=== PATIENT | female | born 1990 | race Caucasian/White ===

== ENCOUNTER 2016-05-30 00:48 | Inpatient (IN) | payer BC, OTHER ==
[2016-05-30] VITALS (7 sets, daily range): BP systolic 114–134; BP diastolic 56–88
[~2016-05-30] VITALS: Ht 180.3 cm; Wt 82.0 kg
[2016-05-30] MEDS ORDERED: VITA100037 PO (01:45)
[2016-05-30] MEDS ORDERED: PRENTAB9 PO (01:45)
[2016-05-30 02:22] LABS: MEAN CORPUSCULAR HEMOGLOBIN 33.3 pg (27.0-33.0); MEAN CORPUSCULAR HGB CONC 36.1 g/dl (32.0-36.5); MEAN CORPUSCULAR VOLUME 92.2 fl (80.0-96.0); RED CELL DISTRIBUTION WIDTH 13.2 % (11.5-14.5); WHITE BLOOD COUNT 12.9 K/mm3 (4.0-10.0)
[2016-05-30] MEDS ORDERED: LR 1,000 ML IV SCH (03:38)
[2016-05-30] MEDS ORDERED: OXYTOCIN DRIP 30 UNITS in APPROPRIATE DILUENT 1 EA IV SCH (03:45)
[2016-05-30] MEDS ORDERED: FENTANYL 2MCG/ML ROPIVACAINE 0.2% NACL 250 ML CADD As Ordered ONE (04:47)
[2016-05-30] MEDS ORDERED: OXYTOCIN INJ 10 UNITS/ML VIAL (J2590) As Ordered ONE (05:17)
[2016-05-30] MEDS ORDERED: LIDOCAINE 2% W/EPIN INJ 20ML **PRES FREE As Ordered ONE (05:28)
[2016-05-30] MEDS ORDERED: MIDAZOLAM INJ 2 MG/2 ML VIAL (J2250) As Ordered ONE (05:35)
[2016-05-30] MEDS ORDERED: fentaNYL 100 MCG/2 ML INJECTION (J3010) As Ordered ONE (05:35)
[2016-05-30] MEDS ORDERED: ceFAZolin 1GM INJ (J0690) As Ordered ONE (05:40)
[2016-05-30] MEDS ORDERED: ePHEDrine SULFATE 25 MG/5 ML(5MG/ML) SYRINGE As Ordered ONE (05:45)
[2016-05-30] MEDS ORDERED: MORPHINE PRES-FREE INJ 10 MG/10 ML VIAL (J2274) As Ordered ONE (06:00)
[2016-05-30 06:02] LABS: CORD GAS ABE V -4.7; CORD GAS HCO3 V 22.8 MEQ/L; CORD GAS PCO2 V 50.7 mmHg; CORD GAS PH V 7.271 UNITS; CORD GAS PO2 V 34.7 mmHg; CORD GAS TCO2 V 24.4 MEQ/L
[2016-05-30 06:11] LABS: CORD GAS ABE A -3.5; CORD GAS HCO3 A 23.1 MEQ/L; CORD GAS O2 SAT A 64.4 %; CORD GAS PCO2 A 47.8 mmHg; CORD GAS PH A 7.302 UNITS; CORD GAS PO2 A 27.4 mmHg; CORD GAS SBC A 20.9 MEQ/L; CORD GAS TCO2 A 24.6 MEQ/L
[2016-05-30] MEDS: LR 1,000 ML IV SCH ×3 (06:43→22:43)
[2016-05-30] MEDS: OXYTOCIN DRIP 30 UNITS in APPROPRIATE DILUENT 1 EA IV SCH ×3 (06:43→07:45)
[2016-05-30] MEDS ORDERED: ONDANSETRON 4MG/2ML VIAL (J2405) As Ordered ONE (06:43)
[2016-05-30] MEDS ORDERED: KETOROLAC 30 MG/ML VIAL (J1885) As Ordered ONE (06:43)
[2016-05-30] MEDS ORDERED: MOM 30ML SUSPENSION UDC PO PRN (06:45)
[2016-05-30] MEDS ORDERED: PERCOCET 5MG/325MG TAB PO PRN ×2 (06:45)
[2016-05-30] MEDS ORDERED: DOCUSATE SODIUM 100 MG CAP PO PRN (06:45)
[2016-05-30] MEDS ORDERED: RHOGAM 300 MCG (1500 IU) INJ (J2790) IM SCH (06:45)
[2016-05-30] MEDS ORDERED: MEASLES,MUMPS,RUBELLA VACCINE INJ (MMR-II) (90707) SC SCH (06:45)
[2016-05-30] MEDS ORDERED: ONDANSETRON 4MG/2ML VIAL (J2405) IV PRN ×2 (06:45→07:15)
[2016-05-30] MEDS: KETOROLAC 30 MG/ML VIAL (J1885) IV SCH ×3 (06:45→18:48)
[2016-05-30] MEDS ORDERED: IBUP800T23 PO (06:50)
[2016-05-30] MEDS ORDERED: PERCOCET PO (06:51)
--- NOTE | 2016-05-30 07:02 | HPE ---
DATE OF ADMISSION: 05/30/2016 REASON FOR ADMISSION: Vaginal bleeding, concerning for placenta abruption. HISTORY OF PRESENT ILLNESS: Mrs. Mcclellan is a 26-year-old 1 who presents at 40 weeks 5 days by her last menstrual period (LMP) confirmed by a first trimester ultrasound with an estimated date of confinement (EDC) of 05/25/2016 with complaints of vaginal bleeding. She reports that she woke up earlier this morning with bright red bleeding with a menstrual type flow. She denied any contractions at the time, abdominal pain. She reports movement. She presents as an unregistered patient. Her care has been with Dr. Vashti Gómez located in [place] who works out of [facility]. She reports a course which has been remarkable for a marginal growth with percentile growth approximately 14th percentile and also a low lying placenta, which had resolved. Otherwise, unremarkable course. PAST MEDICAL HISTORY: Infertility. PAST SURGICAL HISTORY: None. PAST OBSTETRICAL HISTORY: She is a 1. This is the result of Clomid with intrauterine insemination. MEDICATIONS: Include vitamins. ALLERGIES: She has no known drug allergies. SOCIAL HISTORY: Denies any alcohol, tobacco or drug use during her . PHYSICAL EXAMINATION: Her vital signs are stable. She is afebrile. Her general appearance is well appearing in no acute distress. Her heart rate tracing was a category 1 with contractions approximately every 4-5 minutes. Her lungs were clear to auscultation bilaterally. Cardiovascular heart regular rate and rhythm. Abdomen was soft, gravid and nontender. Estimated weight 2700 grams. On cervical exam she was 4 cm dilated, 90% effaced, -2 station with a bulging bag. Large clots were removed on sterile speculum exam showing a moderate amount of vaginal bleeding totaling approximately 100 mL over the course of an hour to an hour and a half. LABS: Her blood type is A positive. She was antibody screen negative. Rubella immune. RPR nonreactive. Hepatitis surface antigen was negative. HIV was negative. Chlamydia and gonorrhea screens were negative. She did have a sequential screen with increased risk of neural tube defect. She has been seen by the perinatologist at [place] and has had a normal level 2 ultrasound showing no neural tube defect. She had a normal 1 hour Glucola. Transabdominal ultrasound was performed showing the fetus in the cephalic presentation. Amniotic fluid index was 14 cm, anterior placenta, no clear signs of abruption. Active fetus. ASSESSMENT: 1. Mrs. Mcclellan is a 26-year-old 1 at 40 weeks 5 days estimated gestational age (EGA) with acute onset of vaginal bleeding concerning for placenta abruption. 2. Reassuring status. PLAN: 1. Admit to labor and delivery. 2. CBC, RPR, type and screen. 3. The patient has been thoroughly counseled in regards to her diagnosis concerning for placenta abruption. I discussed her diagnosis in detail with the family. I have also discussed medications as well as procedures performed in labor and delivery. She has also been verbally consented for emergency surgery, blood products, anesthesia and desires to proceed with admission. 4. My plan is to augment her labor with pitocin and as long as she remains stable will proceed with a vaginal delivery. 5. She is a good candidate for an early epidural. RAFAEL
--- NOTE | 2016-05-30 07:13 | RO ---
DATE OF PROCEDURE: 05/30/2016 PREOPERATIVE DIAGNOSIS: Non-reassuring heart rate tracing with placenta abruption. POSTOPERATIVE DIAGNOSIS: Non-reassuring heart rate tracing with placenta abruption. PROCEDURE PERFORMED: An emergent primary lower transverse section. SURGEON: Matilde Jean MD ASSISTANTS: Hai Major MD ANESTHESIA: General endotracheal anesthesia. Estimated blood loss was 600 mL. Intravenous fluids was 1200 mL of lactated Ringer's solution. PREOPERATIVE ANTIBIOTICS: 2 grams of Ancef. OPERATIVE FINDINGS: Upon entry into the uterus, there was large amounts of clots, which were removed and consistent with placenta abruption. Amniotic fluid was stained port wine, also consistent with placenta abruption. There was a liveborn female infant. scores 9 and 9. Weight 2742 grams or 6 pounds 0 ounces. Cord gases 7.3, 7.27 with base excess of -3.5 and -4.7, respectively. INDICATION FOR OPERATION: This patient is a 26-year-old, 1, who presents at 40 weeks 5 days estimated gestational age, last menstrual period confirmed by a first trimester ultrasound, as an unregistered patient of Dr. Gita Gómez, [place], [place], who works out of [employer]. She presented with complaints of vaginal bleeding that occurred late this evening, early this morning. She describes sort of a menstrual flow. She denies any leakage of fluid, contractions, abdominal pain, or trauma. Upon evaluation here at labor and delivery, she is found to have active bleeding, large amounts of clot and was concerns for placenta abruption. She was then admitted and her labor was augmented and request for an early epidural was initiated. Just prior to test dose of epidural, heart rate tracing started to show repetitive late decelerations with prolonged deceleration. At which time, patient was emergently taken to the operating room for a primary section for non-reassuring heart rate tracing. SPECIMENS: Cord blood, cord gases and placenta. DESCRIPTION OF PROCEDURE: After informed consent was obtained, patient was taken to the operating room emergently for non-reassuring heart tracing. She was then prepped and draped in a normal sterile fashion. A Peralta catheter had previously been placed and was set to gravity. Anesthesia was tested and deemed to be adequate, and decision was made to proceed with general anesthesia for her section. After general endotracheal anesthesia was obtained, a Pfannenstiel skin incision was then made and carried down to the underlying rectus fascia. The fascia was then scored, and this incision was extended bilaterally. Rectus muscles were then in the midline. Peritoneum was then entered. Incision was then made in the lower uterine segment. Amniotomy was then performed, productive of port wine stained colored amniotic fluid and removal of large blood clots. The head was then brought to level of incision, delivered atraumatically, followed by delivery of shoulders and corpus. Cord was clamped times two and was cut, and infant was taken over to the warmer with a good cry. Placenta was then delivered grossly intact. Uterus then exteriorized and cleared of all clots and debris. The uterine incision was then closed in two layers using #0 Vicryl, first layer in a running locking fashion, followed by a second layer for imbrication in a running nonlocking fashion. The abdomen was then suctioned. The uterus was returned to the patient's abdomen and was re-inspected and noted to be hemostatic. The anterior peritoneum was then reapproximated using #3-0 Vicryl. The rectus muscles were reapproximated with #3-0 Vicryl. The fascia was then closed using #0 Vicryl in a running nonlocking fashion. The subcutaneous tissue was then irrigated and suctioned. The Zach's fascia was reapproximated with #3-0 Vicryl. Several subdermal stitches were placed with #3-0 Vicryl, and the skin was closed with #4-0 Monocryl in a subcuticular fashion. The incision was then cleaned and dried. Mastisol was applied above and below the incision. Steri-Strips were applied over the incision, and the incision was then dressed. X-ray was then taken secondary to the emergent nature of the surgery. There was no count that was completed prior to starting the surgery. X-ray confirmed no retained sponges or operative instruments.
[2016-05-30] MEDS ORDERED: NALBUPHINE HCL 10 MG/ML AMP (J2300) IV PRN (07:15)
[2016-05-30] MEDS ORDERED: fentaNYL 100 MCG/2 ML INJECTION (J3010) IV PRN (07:15)
[2016-05-30] MEDS ORDERED: KETOROLAC 30 MG/ML VIAL (J1885) IV PRN (07:15)
--- NOTE | 2016-05-30 08:22 | REP ---
Clinical: Stat section without count. Technique: Portable supine view of the abdomen and pelvis. Findings: Bowel gas pattern is nonspecific. Epidural catheter is identified. There is no opaque foreign body overlying the right upper abdomen which requires correlation and may be external to the body. No other foreign bodies identified. Impression: Foreign body overlying the right upper abdomen may be external to the body. Signed by Judd Grimes MD 05/30/2016 08:14 A
[2016-05-30] MEDS: PRENATAL VITAMIN TAB PO SCH (09:00)
[2016-05-30] MEDS ORDERED: PROMETHAZINE INJ 25 MG/ML VIAL (J2550) IV PRN (12:20)
[2016-05-31] MEDS: OXYTOCIN DRIP 30 UNITS in APPROPRIATE DILUENT 1 EA IV SCH ×2 (00:17→00:48)
[2016-05-31] MEDS: KETOROLAC 30 MG/ML VIAL (J1885) IV SCH (01:01)
[2016-05-31 02:08] VITALS: BP 105/50
[2016-05-31 06:11] VITALS: BP 108/55
[2016-05-31] MEDS: LR 1,000 ML IV SCH (06:43)
[2016-05-31 07:10] LABS: MEAN CORPUSCULAR HEMOGLOBIN 33.1 pg (27.0-33.0); MEAN CORPUSCULAR HGB CONC 35.3 g/dl (32.0-36.5); MEAN CORPUSCULAR VOLUME 93.7 fl (80.0-96.0); RED CELL DISTRIBUTION WIDTH 13.3 % (11.5-14.5); WHITE BLOOD COUNT 13.5 K/mm3 (4.0-10.0)
[2016-05-31] MEDS: PRENATAL VITAMIN TAB PO SCH (09:00)
[2016-05-31] MEDS: IBUPROFEN 800 MG TAB PO SCH ×2 (09:39→20:30)
[2016-05-31 10:00] VITALS: BP 118/63
[2016-05-31 14:00] VITALS: BP 123/69
[2016-05-31 18:09] VITALS: BP 115/57
[2016-06-01] MEDS: IBUPROFEN 800 MG TAB PO SCH ×2 (00:45→08:15)
[2016-06-01 06:19] VITALS: BP 128/65
--- NOTE | 2016-06-01 08:01 | DSES ---
DATE OF ADMISSION: 05/30/2016 DATE OF DISCHARGE: HISTORY: 26-year-old G1 female 40-5/7 weeks gestation presents with onset of vaginal bleeding at home on the day of admission. The bleeding was like menstrual flow. She subsequently began to bleed heavier upon presentation to the hospital. Clinical suspicion was for placenta abruption. Her care was in [place] with Dr. Gita Gómez. Her course was significant for marginal growth and low lying placenta. HOSPITAL COURSE: On 05/30/2016, the patient was admitted with clinical suspicion of placental abruption at term. Labor was augmented. Shortly into the augmentation process, she developed heavier bleeding and repetitive late decelerations. Decision was made to perform section. On 05/30/2016, she underwent primary low transverse section without complication. There were multiple large clots behind the placenta consistent with placental abruption. Her postoperative course is unremarkable. She had adequate return of bladder and bowel function. Her postoperative hemoglobin was 10.4 g/dl. She was deemed stable for discharge on postoperative day #2. ADMISSION DIAGNOSIS: , 40+ weeks, placental abruption. DISCHARGE DIAGNOSIS: Delivered. PROCEDURE: Primary low transverse section. DISPOSITION: Patient will followup in 2 weeks for postoperative check. She will either followup with Dr. Jean or will go back to [place] to Dr. Gita Gómze. Instructions are reviewed.
[2016-06-01] MEDS: PRENATAL VITAMIN TAB PO SCH (08:14)
[2016-06-01] MEDS ORDERED: OXYC1TAB23 PO ×2 (09:39→09:40)
== END 2016-06-01 10:45 | disposition home or self-care (01) | DRG 540 ==
LOC: M LDO 00:48 → M LDI 03:09 → M OBS 06:51
PROVIDERS: ADMIT Obstetrics & Gynecology; ATTEND Obstetrics & Gynecology
PROC: 10D00Z1 Extraction of Products of Conception, Low, Open Approach (ICD-10-PCS; principal; 2016-05-30 06:34)
DX: O45.93 Premature separation of placenta, unspecified, third trimester (principal); O76 Abnormality in fetal heart rate and rhythm complicating labor and delivery; Z3A.40 40 weeks gestation of pregnancy; Z37.0 Single live birth

== ENCOUNTER 2017-06-30 18:20 | Emergency (ER) | payer BC, OTHER ==
[2017-06-30 19:05] LABS: BASO % 0.2 % (0.0-1.0); EOS % 0.2 % (0.0-3.0); HEMATOCRIT 37.9 % (36.0-47.0); HEMOGLOBIN 12.9 g/dl (12.0-16.0); IMMATURE GRANULOCYTE % 0.4 % (0-3.0); LYMPH # 1.7 10^3/uL (1.5-6.5); LYMPH % 16.4 % (24.0-44.0); MEAN CORPUSCULAR HEMOGLOBIN 31.4 pg (27.0-33.0); MEAN CORPUSCULAR VOLUME 92.2 fl (80.0-96.0); MONO # 0.7 10^3/uL (0.0-0.8); MONO % 6.7 % (0.0-5.0); NEUTROPHILS # 7.9 10^3/uL (1.8-7.7); NEUTROPHILS % 76.1 % (36.0-66.0); PLATELET COUNT, AUTOMATED 188 10^3/uL (150-450); RED BLOOD COUNT 4.11 10^6/uL (4.00-5.40); RED CELL DISTRIBUTION WIDTH 14.2 % (11.5-14.5); WHITE BLOOD COUNT 10.4 10^3/uL (4.0-10.0)
[2017-06-30 20:01] LABS: HCG, SERUM QUANTITATIVE 38640 MIU/ML
== END 2017-06-30 21:02 | disposition home or self-care (01) ==
LOC: M ED 18:20
DX: O20.0 Threatened abortion (principal); Z3A.15 15 weeks gestation of pregnancy
CPT/HCPCS: 76811

== ENCOUNTER → 2018-02-23 | Outpatient (REF) | payer BC, OTHER | LOC: M LAB REF 17:32 | DX: J02.9 Acute pharyngitis, unspecified (principal) | CPT/HCPCS: 87081 ==

== ENCOUNTER → 2019-07-15 | Outpatient (REF) | payer OTHER, BC ==
[~2019-07-15] MED LIST: IBUP1TAB7 PO; OXYC1TAB23 PO; PERCOCET PO; PRENTAB9 PO; VITA100067 PO
[2019-07-15 18:37] LABS: BASO % 0.4 % (0.0-1.0); EOS % 0.5 % (0.0-3.0); LYMPH # 1.5 10^3/uL (1.5-5.0); LYMPH % 25.9 % (24.0-44.0); MEAN CORPUSCULAR HEMOGLOBIN 30.5 pg (27.0-33.0); MEAN CORPUSCULAR HGB CONC 32.5 g/dl (32.0-36.5); MEAN CORPUSCULAR VOLUME 93.9 fl (80.0-96.0); MONO # 0.5 10^3/uL (0.0-0.8); MONO % 9.5 % (0.0-5.0); NEUTROPHILS # 3.6 10^3/uL (1.5-8.5); NEUTROPHILS % 63.5 % (36.0-66.0); PLATELET COUNT, AUTOMATED 214 10^3/uL (150-450); RED BLOOD COUNT 4.26 10^6/uL (4.00-5.40); WHITE BLOOD COUNT 5.7 10^3/uL (4.0-10.0)
[2019-07-15 19:19] LABS: ALBUMIN 4.4 GM/DL (3.2-5.2); ALT/SGPT 13 U/L (12-78); BILIRUBIN,TOTAL 0.4 MG/DL (0.2-1.0); BLOOD UREA NITROGEN 15 MG/DL (7-18); CALCIUM LEVEL 9.1 MG/DL (8.5-10.1); CARBON DIOXIDE LEVEL 28 MEQ/L (21-32); CHLORIDE LEVEL 105 MEQ/L (98-107); CREATININE FOR GFR 0.69 MG/DL (0.55-1.30); GLOMERULAR FILTRATION RATE > 60.0 (>60); GLUCOSE, FASTING 84 MG/DL (70-100); POTASSIUM SERUM 3.8 MEQ/L (3.5-5.1); RHEUMATOID FACTOR QUANT < 10.0 IU/ML (<15.0); SODIUM LEVEL 139 MEQ/L (136-145); TOTAL PROTEIN 7.5 GM/DL (6.4-8.2)
[2019-07-15 19:20] LABS: TOTAL 25(OH) VITAMIN D 38.7 NG/ML (30.0-100.0)
[2019-07-15 19:30] LABS: ERYTHROCYTE SEDIMENTATION RATE 4 mm/hr (0-20)
[2019-07-17 14:09] LABS: ANTINUCLEAR ANTIBODIES DIRECT Negative (Negative)
== END ==
LOC: M LABNEURO 14:08
PROVIDERS: ATTEND Psychiatry & Neurology Neurology
DX: R51 Headache (principal)

== ENCOUNTER → 2021-02-22 | Outpatient (CLI) | payer BC, OTHER ==
--- NOTE | 2021-02-22 14:00 | REPMRS ---
Patient History The patient states she had a clinical breast exam in January 2021. Family history of colorectal cancer at age 50 in paternal grandfather, breast cancer at age 50 in maternal aunt, breast cancer at age 50 in paternal aunt. Took hormonal contraceptives for 12 years. Pfizer vaccine 07/20/20 right arm. 08/10/20 left arm. Pt denied . Patient states no breast complaints today. Patient has signed MRS History Sheet. Digital Woman Screen Mammo: February 22, 2021 - Exam #: [id number] Bilateral CC and MLO view(s) were taken. Technologist: RT Harjeet Prior study comparison: February 01, 2020, digital mammo diagnostic bilateral, performed at [facility]. FINDINGS: The breast tissue is extremely dense which could obscure a lesion on mammography. [facility]. There is an extremely dense symmetrical pattern of residual fibroglandular tissue. There has been no change in the appearance of the mammogram from the previous studies. There is no interval development of dominant mass, archetectural distortion, or grouped microcalcifications suggestive of malignancy. 3-D tomosynthesis shows no additional findings. Assessment: BI-RADS/ACR category 1 mammogram. Negative Mammogram. Recommendation Breast MRI of both breasts in 6 months. Routine screening mammogram of both breasts in 1 year (for women over age 40). This patient's [facility] Lifetime Breast Cancer RIsk is estimated at 21.6 %. Patients whose estimated lifetime breast cancer risk assessment is greater than 20% merit annual screening breast MRI scanning in addition to annual mammography. This mammogram was interpreted with the aid of an FDA-approved computer-aided dectection system. Electronically Signed By: Shabbir Chapman MD 02/22/21 1400
== END ==
LOC: M WHC 12:28
PROVIDERS: ATTEND Surgery
DX: Z91.89 Other specified personal risk factors, not elsewhere classified (principal); Z80.3 Family history of malignant neoplasm of breast

== ENCOUNTER → 2021-08-11 | Outpatient (CLI) | payer BC, OTHER ==
[~2021-08-11] MED LIST changes: +PROHANCE 279.3MG/ML 15ML VIAL As Ordered ONE
== END ==
LOC: M RAD 12:30
PROVIDERS: ATTEND Surgery
DX: Z91.89 Other specified personal risk factors, not elsewhere classified (principal)
CPT/HCPCS: A9576; C8908

== ENCOUNTER → 2022-02-23 | Outpatient (CLI) | payer BC, OTHER ==
[~2022-02-23] MED LIST changes: -PROHANCE 279.3MG/ML 15ML VIAL As Ordered ONE
== END ==
LOC: M WHC 09:08
PROVIDERS: ATTEND Nurse Practitioner Women's Health
DX: Z12.31 Encounter for screening mammogram for malignant neoplasm of breast (principal); Z91.89 Other specified personal risk factors, not elsewhere classified; Z80.3 Family history of malignant neoplasm of breast; R92.8 Other abnormal and inconclusive findings on diagnostic imaging of breast

== ENCOUNTER → 2022-03-27 | Outpatient (CLI) | payer BC, OTHER | LOC: M WHC 15:11 | PROVIDERS: ATTEND Nurse Practitioner Women's Health | DX: Z12.31 Encounter for screening mammogram for malignant neoplasm of breast (principal); Z91.89 Other specified personal risk factors, not elsewhere classified; Z80.3 Family history of malignant neoplasm of breast | CPT/HCPCS: 77065; G0279 ==

== ENCOUNTER → 2022-08-24 | Outpatient (CLI) | payer BC, OTHER ==
[~2022-08-24] MED LIST changes: +PROHANCE 279.3MG/ML 15ML VIAL ONE
== END ==
LOC: M PLAIMG 08:04
PROVIDERS: ATTEND Nurse Practitioner Women's Health
DX: Z91.89 Other specified personal risk factors, not elsewhere classified (principal); Z80.3 Family history of malignant neoplasm of breast
CPT/HCPCS: A9576; C8908

== ENCOUNTER → 2023-02-25 | Outpatient (CLI) | payer BC, OTHER ==
[~2023-02-25] MED LIST changes: -PROHANCE 279.3MG/ML 15ML VIAL ONE
== END ==
LOC: M WHC 15:28
PROVIDERS: ATTEND Nurse Practitioner Women's Health
DX: Z12.31 Encounter for screening mammogram for malignant neoplasm of breast (principal); R92.2 Inconclusive mammogram; Z91.89 Other specified personal risk factors, not elsewhere classified; Z80.3 Family history of malignant neoplasm of breast

== ENCOUNTER → 2023-04-18 | Outpatient (REF) | payer BC, OTHER | LOC: M SFHCWAGY 17:50 | PROVIDERS: ATTEND Nurse Practitioner Family | DX: Z12.4 Encounter for screening for malignant neoplasm of cervix (principal) | CPT/HCPCS: 87070; 87624; G0123 ==

== ENCOUNTER → 2023-09-05 | Outpatient (CLI) | payer BC ==
[~2023-09-05] MED LIST changes: +PROHANCE 279.3MG/ML 15ML VIAL ONE
== END ==
LOC: M PLAIMG 14:14
PROVIDERS: ATTEND Nurse Practitioner Family
DX: R92.2 Inconclusive mammogram (principal); Z91.89 Other specified personal risk factors, not elsewhere classified; Z80.3 Family history of malignant neoplasm of breast
CPT/HCPCS: A9576; C8908